=== PATIENT | male | born 1995 | race Caucasian/White ===

== ENCOUNTER 2022-07-30 23:56 | Emergency (ER) | payer SELFPAY ==
[~2022-07-30] VITALS: Ht 177.8 cm; Wt 81.6 kg
[2022-07-31 00:11] VITALS: BP 145/80
--- NOTE | 2022-07-31 00:11 | NUR ---
BIBS C/O RIGHT HAND PAIN S/P "PUNCHED A WALL"
[2022-07-31] MEDS ORDERED: oxyCODONE/APAP (5/325 MG) 1 UDTAB TABLET PO ONE (00:30)
[2022-07-31] MEDS ORDERED: oxyCODONE/APAP (5/325 MG) 1 UDTAB TABLET ONE (00:36)
[2022-07-31] MEDS ORDERED: OXYC-128 PO (01:38)
--- NOTE | 2022-07-31 01:45 | NUR ---
Patient discharged to home in stable condition. Written and verbal after care instructions given. Patient verbalizes understanding of instruction.
== END 2022-07-31 01:45 | disposition home or self-care (01) ==
LOC: ER 07-31 00:02
DX: S62.636A Displaced fracture of distal phalanx of right little finger, initial encounter for closed fracture (principal); Z60.2 Problems related to living alone; W22.01XA Walked into wall, initial encounter; Y93.89 Activity, other specified; Y92.89 Other specified places as the place of occurrence of the external cause; Y99.8 Other external cause status
CPT/HCPCS: 73130-TC